=== PATIENT | female | born 1995 | race Caucasian/White ===

== ENCOUNTER 2022-03-29 19:46 | Inpatient (IN) | payer MEDICARE ==
[2022-03-29] MEDS ORDERED: Sodium Chloride 0.9% 10 ML Syringe FLUSH PRN (20:30)
[2022-03-29] MEDS ORDERED: Ondansetron 4 MG/2 ML SDV IVPUSH ONE (20:30)
[2022-03-29] MEDS ORDERED: HYDROmorphone 0.5 MG/0.5 ML Syringe IVPUSH ONE (20:30)
[2022-03-29] MEDS ORDERED: Iopamidol 612 MG/ML 100 ML Bottle IVPUSH ONE (20:47)
[2022-03-29] MEDS ORDERED: Sodium Chloride 0.9% 10 ML Syringe FLUSH ONE (20:47)
[2022-03-29] MEDS ORDERED: Lidocaine 1% 2 ML ONE (22:09)
[2022-03-29] MEDS ORDERED: Rocuronium 50 MG/5 ML Vial ONE (22:09)
[2022-03-29] MEDS ORDERED: Ondansetron 4 MG/2 ML SDV ONE (22:09)
[2022-03-29] MEDS ORDERED: fentaNYL 100 MCG/2 ML SDV ONE (22:10)
[2022-03-29] MEDS ORDERED: Propofol 200 MG/20 ML SDV ONE (22:10)
[2022-03-29] MEDS ORDERED: Lidocaine 1% 30 ML SDV ONE (22:21)
[2022-03-29] MEDS ORDERED: Bupivacaine 0.5%/EPINEPHrine 1:200,000 50 ML MDV ONE (22:21)
[2022-03-29] MEDS ORDERED: Ondansetron 4 MG/2 ML SDV IVPUSH PRN (22:27)
[2022-03-29] MEDS ORDERED: HYDROmorphone 0.5 MG/0.5 ML Syringe IVPUSH PRN (22:27)
[2022-03-29] MEDS ORDERED: fentaNYL 100 MCG/2 ML SDV IVPUSH PRN (22:27)
[2022-03-29] MEDS ORDERED: Piperacillin/Tazobactam 4.5 GM in Sodium Chloride 0.9% 100 ML IV ONE (22:39)
[2022-03-29] MEDS ORDERED: Piperacillin/Tazobactam 4.5 GM Vial ONE (22:41)
[2022-03-29] MEDS ORDERED: Sodium Chloride 0.9% 100 ML ONE (22:42)
[2022-03-29] MEDS ORDERED: Midazolam 1 MG/ML 2 ML SDV ONE (22:44)
[2022-03-29] MEDS ORDERED: Lactated Ringers 1,000 ML ONE (22:47)
[2022-03-29] MEDS ORDERED: Sugammadex Sodium 200 MG/2 ML VIAL ONE (23:31)
[2022-03-29] MEDS ORDERED: Ketorolac 30 MG/ML SDV ONE (23:34)
[2022-03-29] MEDS ORDERED: HYDROmorphone 0.5 MG/0.5 ML Syringe ONE (23:46)
[2022-03-30] MEDS ORDERED: Midazolam 1 MG/ML 2 ML SDV IVPUSH ONE (00:34)
[2022-03-30] MEDS ORDERED: Midazolam 1 MG/ML 2 ML SDV ONE (00:38)
[2022-03-30] MEDS ORDERED: Ondansetron 4 MG in Sodium Chloride 0.9% 50 ML IV PRN (00:53)
[2022-03-30] MEDS ORDERED: Piperacillin/Tazobactam 4.5 GM in Sodium Chloride 0.9% 100 ML IV ONE (01:15)
[2022-03-30] MEDS: Sodium Chloride 0.9% 1,000 ML IV SCH ×4 (01:29→23:17)
[2022-03-30] MEDS: Acetaminophen 325 MG Tab PO SCH ×4 (01:30→18:51)
[2022-03-30] MEDS: HYDROmorphone 0.5 MG/0.5 ML Syringe IVPUSH PRN ×3 (05:06→23:09)
[2022-03-30] MEDS: Piperacillin/Tazobactam 4.5 GM in Sodium Chloride 0.9% 100 ML IV SCH ×3 (06:44→23:08)
[2022-03-30] MEDS ORDERED: Piperacillin/Tazobactam 4.5 GM in Sodium Chloride 0.9% 100 ML IV SCH (09:00)
[2022-03-30] MEDS: Famotidine 20 MG/2 ML SDV IVPUSH SCH ×2 (09:11→20:00)
[2022-03-30] MEDS: Enoxaparin 40 MG/0.4 ML Syringe SUBCUT SCH ×2 (09:11→20:00)
[2022-03-30] MEDS ORDERED: Calcium Gluconate 10% 1 GM/10 ML SDV IV ONE (10:40)
[2022-03-30] MEDS ORDERED: Calcium Gluconate 1 GM in Sodium Chloride 0.9% 100 ML IV ONE (11:00)
[2022-03-30] MEDS: oxyCODONE 5 MG Tab PO PRN ×2 (11:04→19:55)
[2022-03-30] MEDS ORDERED: Albuterol 6.7 GM Inhaler INH PRN (19:20)
[2022-03-30] MEDS ORDERED: Montelukast 5 MG Tab.Chew PO SCH (20:00)
[2022-03-31] MEDS: Acetaminophen 325 MG Tab PO SCH ×4 (00:20→18:24)
[2022-03-31] MEDS: HYDROmorphone 0.5 MG/0.5 ML Syringe IVPUSH PRN ×2 (04:01→14:48)
[2022-03-31] MEDS: Piperacillin/Tazobactam 4.5 GM in Sodium Chloride 0.9% 100 ML IV SCH ×3 (06:33→22:55)
[2022-03-31] MEDS: Sodium Chloride 0.9% 1,000 ML IV SCH ×2 (07:23→21:53)
[2022-03-31] MEDS: Famotidine 20 MG/2 ML SDV IVPUSH SCH ×2 (09:12→21:22)
[2022-03-31] MEDS: Enoxaparin 40 MG/0.4 ML Syringe SUBCUT SCH ×2 (09:12→21:22)
[2022-03-31] MEDS: oxyCODONE 5 MG Tab PO PRN ×2 (10:31→18:23)
[2022-03-31] MEDS: Triamcinolone Acetonide 0.1% Crm 15 GM Tube TOP SCH (10:36)
[2022-03-31] MEDS ORDERED: Calcium Gluconate 10% 1 GM/10 ML SDV IV ONE (16:08)
[2022-03-31] MEDS: Montelukast 5 MG Tab.Chew PO SCH (21:23)
[2022-03-31] MEDS: LORazepam 2 MG/ML SDV IVPUSH PRN (22:28)
[2022-04-01] MEDS: Acetaminophen 325 MG Tab PO SCH ×4 (01:28→19:03)
[2022-04-01] MEDS: Piperacillin/Tazobactam 4.5 GM in Sodium Chloride 0.9% 100 ML IV SCH ×3 (06:45→22:30)
[2022-04-01] MEDS: LORazepam 2 MG/ML SDV IVPUSH PRN (07:25)
[2022-04-01] MEDS ORDERED: Docusate Sodium 100 MG Cap PO PRN (07:52)
[2022-04-01] MEDS: Triamcinolone Acetonide 0.1% Crm 15 GM Tube TOP SCH (10:42)
[2022-04-01] MEDS: Enoxaparin 40 MG/0.4 ML Syringe SUBCUT SCH ×2 (10:42→21:08)
[2022-04-01] MEDS: Sodium Chloride 0.9% 1,000 ML IV SCH (13:18)
[2022-04-01] MEDS: Montelukast 5 MG Tab.Chew PO SCH (21:03)
[2022-04-02] MEDS: Acetaminophen 325 MG Tab PO SCH ×3 (00:07→13:31)
[2022-04-02] MEDS: Sodium Chloride 0.9% 1,000 ML IV SCH (05:23)
[2022-04-02] MEDS: Piperacillin/Tazobactam 4.5 GM in Sodium Chloride 0.9% 100 ML IV SCH ×3 (06:59→15:22)
[2022-04-02] MEDS: Enoxaparin 40 MG/0.4 ML Syringe SUBCUT SCH (08:23)
[2022-04-02] MEDS: Triamcinolone Acetonide 0.1% Crm 15 GM Tube TOP SCH (08:24)
== END 2022-04-02 17:58 | disposition home or self-care (01) | DRG 854 ==
LOC: JD.ED 19:46 → JD.SDS 22:13 → JD.ICU 03-30 00:46 → JD.MS 04-01 23:18
PROVIDERS: ADMIT Surgery; ATTEND Surgery
PROC: 0DTJ4ZZ Resection of Appendix, Percutaneous Endoscopic Approach (ICD-10-PCS; principal; 2022-03-30)
PROC: 0DTB0ZZ Resection of Ileum, Open Approach (ICD-10-PCS; 2022-03-30)
DX: Q43.0 Meckel's diverticulum (displaced) (hypertrophic) (principal); A41.9 Sepsis, unspecified organism; K35.30 Acute appendicitis with localized peritonitis, without perforation or gangrene; K57.12 Diverticulitis of small intestine without perforation or abscess without bleeding; Z68.42 Body mass index [BMI] 45.0-49.9, adult; F41.1 Generalized anxiety disorder; E66.01 Morbid (severe) obesity due to excess calories; E83.51 Hypocalcemia; R53.81 Other malaise
CPT/HCPCS: 36415; 44120; 44970; 51702; 74177; 80053; 81001; 84703; 85025; 86140; 96374; 96375 ×2; 99285; J1170 ×2; J1885; J2250 ×2; J2405 ×2; J2704; J3010 ×2; J3490 ×4; Q9967; 00840; 80048; 97161-GP; 97530-GP; A9270-GY; J0610; J1650; J2060; J2543; J7030